=== PATIENT | female | born 1935 | race Caucasian/White ===

== ENCOUNTER 2018-12-02 05:46 | Inpatient (IN) ==
[2018-12-02] MEDS ORDERED: IPRATROPIUM/ALBUTEROL 3 ML AMPUL.NEB NEB ONE (05:57)
--- NOTE | 2018-12-02 06:07 | Emergency Department Note ---
SOB HPI - General Chief Complaint: Shortness of Breath/Dyspnea Stated Complaint: cough Time Seen by Provider: 12/02/18 06:01 Source: family Mode of arrival: wheelchair Limitations: no limitations - History of Present Illness This pleasant 83-year-old female comes the emergency room brought by her daughter and son, Ivonne with a couple day history of cough and worsening shortness of breath and a temperature. She has a history of asthma. She has been coughing and short of breath and wheezing with some phlegm production and some holding her chest with chest discomfort with her coughing. No specific chills or sweats have been noted. REVIEW OF SYSTEMS: Has had some weight loss. No nausea or vomiting or diarrhea or constipation Has some edema intermittently or chronically for which she takes furosemide Has had weakness. No dizziness No anxiety or depression. Has a history of some mild dementia. She had several falls for which she has been moved to the area from [place] where she used to live. - Related Data Home Medications Medication Instructions Recorded Confirmed Diltiazem HCl [Diltiazem ER] 360 mg PO DAILY 08/05/18 08/05/18 Donepezil HCl [Donepezil HCl Odt] 5 mg PO HS 08/05/18 08/05/18 Fluticasone Propionate [Flonase] 1 spray NS DAILY 08/05/18 08/05/18 Ipratropium [place] 0.2 mg IH DAILY 08/05/18 08/05/18 Levothyroxine Sodium [Synthroid] 100 mcg PO DAILY 08/05/18 08/05/18 Montelukast [Singular] 10 mg PO HS 08/05/18 08/05/18 Sertraline HCl [Zoloft] 50 mg PO DAILY 08/05/18 08/05/18 Warfarin [Coumadin] 3 mg PO DAILY 08/05/18 08/05/18 cloNIDine HCL [Catapres] 0.1 mg PO DAILY 08/05/18 08/05/18 Previous Rx's Medication Instructions Recorded Furosemide [Lasix] 20 mg PO DAILY #30 tab 08/05/18 Allergies Allergy/AdvReac Type Severity Reaction Status Date / Time bee venom protein (honey bee) Allergy Verified 08/05/18 20:43 sulfamethoxazole Allergy Verified 08/05/18 20:43 [From Bactrim] trimethoprim [From Bactrim] Allergy Verified 08/05/18 20:43 NEGRO Inhibitors AdvReac Verified 08/05/18 20:43 ARB-Angiotensin Receptor AdvReac Verified 08/05/18 20:43 Antagonist morphine AdvReac Verified 08/05/18 20:43 pain meds AdvReac Uncoded 08/05/18 20:43 Past Medical History - Past Medical History [facility] Narrative: Medical History (Last Updated 12/02/18 @ 06:28 by Von Laws DO) Chronic anticoagulation (Chronic) Congestive heart failure (Chronic) Cardiomegaly (Chronic) Atrial fibrillation/flutter (Chronic) History of CVA (cerebrovascular accident) (Chronic) Asthma with exacerbation (Resolved) Hypertension, essential (Chronic) Dementia (Chronic) Hypothyroidism, acquired (Chronic) History of obstructive sleep apnea (Chronic) Past Surgical History (Last Updated 12/02/18 @ 06:51 by Von Laws DO) History of neck disorder (Acute) Family History (Last Updated 12/02/18 @ 06:52 by Von Laws DO) Mother Father Medical history: Reports: asthma, atrial fibrillation, dementia, thyroid disease Psychiatric history: Denies: anxiety, depression - Social History smoking status: Never smoker Alcohol use: Reports: None Drug use: Reports: none. Denies: marijuana Physical Exam Limitations: no limitations General appearance: alert, anxious, in distress (Difficulty breathing and moving air.) Head: atraumatic, normocephalic Eye: Present: EOMI Respiratory: Present: respiratory distress, wheezes, accessory muscle use, prolonged expiratory phase, other (Initially had quite poor air exchange. After DuoNeb was moving her quite a bit better with occasional inspiratory coarseness and/or crackles and/or occasional wheezing.). Absent: stridor Cardiovascular: Present: regular rate, normal rhythm. Absent: systolic murmur, diastolic murmur Abdominal: Present: soft, hernia (Small anterior midline that is moderately firm.). Absent: distention, tenderness, guarding, rebound, rigidity, organo megaly, mass Neurological: Present: alert Psychiatric: Present: serious. Absent: depressed, agitated, anxious Skin: Present: warm, dry Course Vital Signs Temperature 101.8 F H 12/02/18 05:50 Pulse Rate 92 H 12/02/18 05:50 Respiratory Rate 30 H 12/02/18 05:50 Blood Pressure 150/100 12/02/18 05:50 Pulse Oximetry (%) 85 L 12/02/18 05:50 Temperature 101.7 F H 12/02/18 07:35 Pulse Rate 92 H 12/02/18 09:31 Respiratory Rate 24 H 12/02/18 06:39 Blood Pressure 143/67 12/02/18 09:31 Pulse Oximetry (%) 94 12/02/18 09:31 Shortness of Breath/Dyspnea - [facility] Narrative Medical decision making narrative: 5:54 AM - patient comes in with significant probable asthma exacerbation and fever. Will do septic work-up including chest x-ray, blood cultures, lactic acid, procalcitonin and basic labs. Chart review includes a history of mild anemia and mild creatinine elevation at 1.2+ a proBNP at 3300; all of these were about 3 months ago or 4 months ago. 6:53 AM - chest x-ray read as follows: 1. Cardiomegaly and pulmonary congestion 2. Probable mild interstitial pulmonary edema Because of this we will give a dose of IV furosemide. INR on the POC was 1.5. Patient was given a second dose of albuterol. She was tried to wean down on room air but again went down to 84% oximetry. This is after also furosemide IV. Because of this she is hypoxic and not responding to initial treatment such that she needs to be hospitalized and I will discuss with hospitalist. 9:48 AM - I spoke with Dr. Pimentel, hospitalist who agrees to take this patient. Earlier she had blood cultures obtained and was given 1 dose of IV Rocephin 1 g. - Lab Data Lab results reviewed: Yes I reviewed the patient's lab results. Result diagrams: 12/02/18 06:08 12/02/18 06:08 Lab Results 12/02/18 12/02/18 12/02/18 Range/Units 06:08 06:08 06:08 WBC 13.5 H (4.5-11.0) K/mcL RBC 4.27 (4.00-5.20) M/mcL Hgb 12.3 (12.0-15.0) g/dL Hct 38.0 (36.0-48.0) % MCV 89.1 (80.0-100.0) fL MCH 28.9 (26.0-34.0) pg MCHC 32.4 (31.0-36.0) g/dL RDW 16.5 H (11.5-14.5) % Plt Count 214 (140-440) K/mcL MPV 8.4 (7.4-10.4) fL Total Counted 100 Seg Neutrophils % 79 H (38-78) % Band Neutrophils % 1 (0-10) % Lymphocytes % 9 L (15-49) % Monocytes % (Manual) 11 (1-12) % Platelet Estimate Normal (NORMAL) RBC Morphology Abnorm A (NORMAL) Anisocytosis 1+ A (NONE SEEN) POC PT (11.9-14.5) sec POC INR (0.9-1.2) VBG Lactic Acid (0.5-2.0) mmol/L Sodium 139 (133-145) mmol/L Potassium 4.5 (3.3-5.1) mmol/L Chloride 99 (96-108) mmol/L Carbon Dioxide 25 (22-30) mmol/L Anion Gap 15.0 (8-16) BUN 31 H (8-23) mg/dl Creatinine 1.5 H (0.6-1.1) mg/dl GFR Calculation 31 Glucose 126 H (70-105) mg/dL Calcium 9.5 (8.6-10.4) mg/dl Total Bilirubin 1.1 H (0.0-1.0) mg/dL AST 11 (0-37) U/l ALT 8 (0-40) U/l Alkaline Phosphatase 113 (39-117) U/L Troponin T (0-0.03) ng/ml NT-Pro-B Natriuret Pep 3517.0 H (0-450) pg/ml Total Protein 7.6 (5.9-8.4) gm/dL Albumin 3.6 (3.2-5.2) gm/dL Globulin 4.0 H (2.2-3.7) gm/dL Albumin/Globulin Ratio 0.9 L (1.0-2.3) Procalcitonin 0.44 (<0.10) ng/mL 12/02/18 12/02/18 12/02/18 Range/Units 06:08 06:08 06:30 WBC (4.5-11.0) K/mcL RBC (4.00-5.20) M/mcL Hgb (12.0-15.0) g/dL Hct (36.0-48.0) % MCV (80.0-100.0) fL MCH (26.0-34.0) pg MCHC (31.0-36.0) g/dL RDW (11.5-14.5) % Plt Count (140-440) K/mcL MPV (7.4-10.4) fL Total Counted Seg Neutrophils % (38-78) % Band Neutrophils % (0-10) % Lymphocytes % (15-49) % Monocytes % (Manual) (1-12) % Platelet Estimate (NORMAL) RBC Morphology (NORMAL) Anisocytosis (NONE SEEN) POC PT 17.2 H (11.9-14.5) sec POC INR 1.5 H (0.9-1.2) VBG Lactic Acid 1.0 (0.5-2.0) mmol/L Sodium (133-145) mmol/L Potassium (3.3-5.1) mmol/L Chloride (96-108) mmol/L Carbon Dioxide (22-30) mmol/L Anion Gap (8-16) BUN (8-23) mg/dl Creatinine (0.6-1.1) mg/dl GFR Calculation Glucose (70-105) mg/dL Calcium (8.6-10.4) mg/dl Total Bilirubin (0.0-1.0) mg/dL AST (0-37) U/l ALT (0-40) U/l Alkaline Phosphatase (39-117) U/L Troponin T < 0.01 (0-0.03) ng/ml NT-Pro-B Natriuret Pep (0-450) pg/ml Total Protein (5.9-8.4) gm/dL Albumin (3.2-5.2) gm/dL Globulin (2.2-3.7) gm/dL Albumin/Globulin Ratio (1.0-2.3) Procalcitonin (<0.10) ng/mL - Radiology Data Radiology results reviewed: Yes I reviewed the patient's radiology results. Disposition Pt seen by BOND MANAGER/PA only: No Clinical Impression: Asthma exacerbation Qualifiers: Asthma severity: severe Asthma persistence: unspecified Qualified Code(s): J45.901 - Unspecified asthma with (acute) exacerbation Fever Qualifiers: Fever type: unspecified Qualified Code(s): R50.9 - Fever, unspecified CHF, acute on chronic Qualifiers: Heart failure type: unspecified Qualified Code(s): I50.9 - Heart failure, unspecified Summary: See MEDICAL DECISION MAKING above. With white count of 13.5 and fever, could have an underlying pneumonia but was notNoted on chest x-ray today. Disposition: Xfer As Inpt ([facility]) Condition: Fair Referrals: Ame Mendoza ARNP [Primary Care Provider] -
[2018-12-02] MEDS ORDERED: cefTRIAXone 1 GM VIAL IV ONE (06:16)
--- NOTE | 2018-12-02 06:20 | XRay Report ---
INDICATION: Cough. Fever. Dyspnea. TECHNIQUE: AP chest x-ray,portable semiupright COMPARISON: Previous chest x-ray dated 08/22/2018 FINDINGS:There is cardiomegaly. Pulmonary vascularity is prominent consistent with pulmonary congestion. Maybe mild interstitial edema, right worse than left. No focal pulmonary parenchymal infiltrate or mass. No evidence for pleural fluid. IMPRESSION: 1. Cardiomegaly and pulmonary congestion 2. Probable mild interstitial pulmonary edema Interpreted and Authenticated by: Kel Harmon 12/02/18
[2018-12-02] MEDS ORDERED: LACTATED RINGERS 1,000 ML IV SCH (06:30)
[2018-12-02 06:35] LABS: POC INR 1.5 (0.9-1.2); POC Pro Time 17.2 sec (11.9-14.5)
[2018-12-02] MEDS ORDERED: FUROSEMIDE 20 MG/2 ML VIAL IV ONE (06:53)
[2018-12-02 07:22] LABS: Hemoglobin 12.3 g/dL (12.0-15.0); Mean Cell Volume 89.1 fL (80.0-100.0); Mean Corpuscular HGB Conc 32.4 g/dL (31.0-36.0); Mean Platelet Volume 8.4 fL (7.4-10.4); Platelet Count 214 K/mcL (140-440); RBC 4.27 M/mcL (4.00-5.20); Red Cell Distribution Width 16.5 % (11.5-14.5); WBC 13.5 K/mcL (4.5-11.0)
[2018-12-02 07:45] LABS: Anisocytosis 1+ (NONE SEEN); Band Neutrophils % 1 % (0-10); Lymphocytes % 9 % (15-49); Monocytes % (Manual) 11 % (1-12); Platelet Estimate NORMAL (NORMAL); RBC Morphology ABNORM (NORMAL); Segmented Neutrophils % 79 % (38-78)
[2018-12-02 07:46] LABS: ALT/SGPT 8 U/l (0-40); AST/SGOT 11 U/l (0-37); Albumin 3.6 gm/dL (3.2-5.2); Albumin/Globulin Ratio 0.9 (1.0-2.3); Alkaline Phosphatase 113 U/L (39-117); Bilirubin,Total 1.1 mg/dL (0.0-1.0); Blood Urea Nitrogen 31 mg/dl (8-23); Calcium 9.5 mg/dl (8.6-10.4); Carbon Dioxide 25 mmol/L (22-30); Chloride 99 mmol/L (96-108); Glomerular Filtration Rate 31; Glucose 126 mg/dL (70-105); Potassium 4.5 mmol/L (3.3-5.1); Sodium 139 mmol/L (133-145)
[2018-12-02 10:45] LABS: Appearance,Urine CLEAR; Bacteria,Urine FEW /hpf (0); Bilirubin,Urine NEG (NEG); Color,Urine STRAW; Culture Indicated,Urine YES; Glucose,Urine (UA) NEGATIVE (NEG); Ketones,Urine NEG (NEG); Leukocyte Esterase,Urine 25 /uL (NEG); Mucus,Urine FEW /hpf (0); Nitrate,Urine NEG (NEG); Protein,Urine NEG (NEG); Specific Gravity,Urine 1.009 (1.000-1.035); Urine Blood 0.03 mg/dL (<0.03); Urine Hyaline Cast 1 /lpf (0-2); Urine RBC 1 /hpf (0-1); Urine Squamous Epithelial Cell < 1 /hpf (0-4); Urine Transitional Epi Cells < 1 /hpf (0-2); Urine WBC 5 /hpf (0-4); Urobilinogen,Urine NEG (NEG)
--- NOTE | 2018-12-02 10:49 | Cat Scan Report ---
CLINICAL INFORMATION: Fever TECHNIQUE: Axial images through the chest, abdomen, pelvis. Sagittal and coronal reformatted images. Intravenous contrast material was not administered. COMPARISON: Chest x-rays dated 12/02/2018, 08/22/2018, 08/05/2018 FINDINGS: CHEST: Infiltrate in the superior segment of the right lower lobe consistent with pneumonia. Mild right upper lobe and left lower lobe infiltrates are nonspecific. There is a small right pleural effusion. No evidence for loculation. No evidence for empyema. There is cardiomegaly. Chest x-ray consistent with mild interstitial edema. There is no pericardial fluid. There is only mild coronary artery calcification. There is mild calcification within the thoracic aorta. No aneurysmal dilatation. There is a 2.2 cm pretracheal lymph node. No evidence for hilar adenopathy on this noncontrast enhanced examination. There is no pathologic axillary or supraclavicular adenopathy. There is mild retained material within the esophagus. There is no hiatal hernia. No detectable mass. No thoracic compression fractures. No lytic lesions. No rib lesions. ABDOMEN AND PELVIS: 10 mm low density abnormality in the right lobe of liver. This is nonspecific. Liver is otherwise negative. Liver contour is smooth. No evidence for cirrhosis. Gallbladder is present. No calcified gallstones. No dilated bile ducts. No evidence for hepatic abscess. Negative spleen. No splenomegaly Negative adrenal glands. Pancreas is negative. No pancreatic mass. No peripancreatic abnormality. Kidneys are negative to the limits of noncontrast enhanced examination. There is no cholelithiasis. No renal calculi or detectable mass Colon is negative. There is no diverticulitis. No detectable colonic mass. No evidence for appendicitis. Small bowel is negative. No mechanical small bowel obstruction There is no adnexal mass. No free pelvic fluid. No intra-abdominal fluid collection. No intra-abdominal abscess. There is no pneumoperitoneum. There is no biliary or portal venous gas. No pneumatosis. Trace calcification of the abdominal aorta. No abdominal aortic aneurysm Multilevel degenerative disc disease in the lumbar spine. No evidence for discitis. Sacrum and pelvis are negative. IMPRESSION: 1. Pulmonary parenchymal infiltrates consistent with pneumonia. Small right pleural effusion 2. Nonspecific 2 cm pretracheal lymph node 3. Material within the esophagus consistent with incomplete clearing 4. Nonspecific 10 mm lesion in the right lobe of the liver is probably benign Interpreted and Authenticated by: Kel Harmon 12/02/18
[2018-12-02] MEDS ORDERED: LACTATED RINGERS 1,000 ML IV ONE (10:57)
--- NOTE | 2018-12-02 11:08 | Internal Med History&Physical ---
Medical - H&P: HPI Patient information: Note initiated : 12/02/18 at 11:05 am Service Date, if different from initiated Date: [] Patient: Emely Chavez a 83 y/o F admitted on for cough. Chief Complaint: [] History of present illness: Ms. Chavez is a 83 year old F who lives at home I believe with her daughter in the son-in-law, comes to the emergency room brought in by the family for evaluation of weakness and fever. Patient is pleasantly demented and notes that there is nothing wrong with her she was doing fine but her family did some tests and then brought her to the hospital. According to the ER note the patient family reported that the patient has a history of cough and fever that has been bothering her for the last 2 days. She was getting progressively worse and therefore she was brought to the emergency room for evaluation The family was not present by the bedside at the time of my evaluation The patient denied any acute complaints during my review of systems declined cough even though she was coughing. On presentation patient was febrile temperature 101.8 T-max of 102.5, heart rate 91 blood pressure 150 x 100 hypoxic with the oxygen saturation of 85 needing 3 L of oxygen to saturate more than 90%. Labs showed WBC count of 13.5 hemoglobin 12.3 platelets 214 INR is 1.5 lactic acid 1.0 chemistry shows sodium 139 potassium 4.5 creatinine 1.5 bicarbonate 25 glucose 126 procalcitonin is 0.44 troponin is negative. Chest x-ray was reported as negative possible pulmonary congestion by the radiologist however I felt that there is an infiltrate on the right side and therefore ordered a chest CT, also covered abdomen and pelvis to look for any other source of fever. CT chest showed patient does have infiltrate on the right side The patient does have history of dysphagia based on her previous records, she had a swallow eval done in 2018 which showed delayed swallow and early spillage. Patient possibly could also hav aspiration pneumonia. She is being admitted to the hospital for further management All systems: reviewed and no additional remarkable complaints except as stated (as per HPI, not sure how reliable pt ROS Is given dementia,) Medical - H&P: H Medical history: Medical History (Last Updated 12/02/18 @ 06:28 by Von Laws DO) Chronic anticoagulation (Chronic) Congestive heart failure (Chronic) Cardiomegaly (Chronic) Atrial fibrillation/flutter (Chronic) History of CVA (cerebrovascular accident) (Chronic) Asthma with exacerbation (Resolved) Hypertension, essential (Chronic) Dementia (Chronic) Hypothyroidism, acquired (Chronic) History of obstructive sleep apnea (Chronic) Mitral regurgitation Depression Gout Surgical history: Past Surgical History (Last Updated 12/02/18 @ 06:51 by Von Laws DO) History of neck disorder (Acute) Pertinent family history: Family History (Last Updated 12/02/18 @ 06:52 by Von Laws DO) Mother Father Medical - H&P: Meds Home Medications Medication Instructions Recorded Confirmed Type Diltiazem HCl [Diltiazem ER] 360 mg PO DAILY 08/05/18 12/02/18 History Donepezil HCl [Donepezil HCl Odt] 5 mg PO HS 08/05/18 12/02/18 History Fluticasone Propionate [Flonase] 1 spray NS DAILY 08/05/18 12/02/18 History Ipratropium [place] 0.2 mg IH DAILY 08/05/18 12/02/18 History Levothyroxine Sodium [Synthroid] 100 mcg PO DAILY 08/05/18 12/02/18 History Montelukast [Singular] 10 mg PO HS 08/05/18 12/02/18 History Warfarin [Coumadin] 3 mg PO DAILY 08/05/18 12/02/18 History cloNIDine HCL [Catapres] 0.1 mg PO DAILY 08/05/18 12/02/18 History Diclofenac Sodium [Voltaren] 100 gm TP DAILY PRN 12/02/18 12/02/18 History Allergies Allergy/AdvReac Type Severity Reaction Status Date / Time bee venom protein (honey bee) Allergy Verified 08/05/18 20:43 sulfamethoxazole Allergy Verified 08/05/18 20:43 [From Bactrim] trimethoprim [From Bactrim] Allergy Verified 08/05/18 20:43 NEGRO Inhibitors AdvReac Verified 08/05/18 20:43 ARB-Angiotensin Receptor AdvReac Verified 08/05/18 20:43 Antagonist morphine AdvReac Verified 08/05/18 20:43 pain meds AdvReac Uncoded 08/05/18 20:43 Medical - H&P: Exam - Constitutional Vitals: Temp Pulse Resp BP Pulse Ox 101.7 F H 81 24 H 143/67 95 12/02/18 07:35 12/02/18 09:58 12/02/18 06:39 12/02/18 09:31 12/02/18 09:58 Exam: GENERAL: The patient is a well-developed, well-nourished in no apparent distress. Is alert and oriented x1. Pleaseantly demented VITAL SIGNS: Reviewed and as noted elsewhere. HEENT: Head is normocephalic and atraumatic. Extraocular muscles are intact. Pupils are equal, round, and reactive to light. Nares appeared normal. Mouth jesse ears any without lesions. Mucous membranes are moist. NECK: Normal to inspection, Supple, No lymphadenopathy or thyromegaly. LUNGS: Air entry equal on both sides, no wheezing, crackles or rhonchi noted. No accessory muscles of respiration HEART: Regular rate and rhythm normal, S1 and S2 heard, no Gallop, S3 or Rub Noted, No Gross murmur heard. ABDOMEN: Soft, nontender, and nondistended. Positive bowel sounds. No hepatosplenomegaly was noted. EXTREMITIES: No cyanosis, clubbing, rash, lesions, trace edema NEUROLOGIC: Cranial nerves II through XII are grossly intact. Motor and Sensory System Grossly Intact PSYCHIATRIC: confused SKIN: No ulceration or wounds noted, No jaundice, No rash noted. Medical - H&P: Reslt - Labs CBC & Chem 7: 12/02/18 06:08 12/02/18 06:08 Labs: Short CBC 12/02/18 Range/Units 06:08 WBC 13.5 H (4.5-11.0) K/mcL Hgb 12.3 (12.0-15.0) g/dL Hct 38.0 (36.0-48.0) % Plt Count 214 (140-440) K/mcL BMP 12/02/18 06:08 Sodium 139 Potassium 4.5 Chloride 99 Carbon Dioxide 25 BUN 31 H Creatinine 1.5 H Glucose 126 H Calcium 9.5 Cardiac Enzymes 12/02/18 Range/Units 06:08 Troponin T < 0.01 (0-0.03) ng/ml Liver Function 12/02/18 Range/Units 06:08 Total Bilirubin 1.1 H (0.0-1.0) mg/dL AST 11 (0-37) U/l ALT 8 (0-40) U/l Alkaline Phosphatase 113 (39-117) U/L Albumin 3.6 (3.2-5.2) gm/dL Urine 12/02/18 Range/Units 09:50 Urine Color Straw Urine Appearance Clear Urine pH 6.0 (5.0-9.0) Ur Specific [place] 1.009 (1.000-1.035) Urine Protein Neg (NEG) mg/dL Urine Glucose (UA) Negative (NEG) mg/dL Medical - H&P: A/P - Narrative A/P Narrative: A/P Sepsis Pneumonia, likely Aspirational -Treat with IVF, Broad spectrum coverage to cover aspiration, and community acquired pna -nasal mrsa screen, if neg will d/c vanco -Blood and sputum cx, descalate therapy per microbiology Acute hypoxic respiratory failure -Oxygen supplementation to keep osat > 90 Dementia -continue donezepil -high risk of delirum conservative management, Atrial Fibrillation -on coumadin and cardizem for rate control -INR is subtherapeutic, management of coumadin per pharmacy -Resume cardizem from AM, bp is stable. Rate is controlled HTN -resume cardizem from AM once bp stable x 24 hrs Mitral regurgitation -moderate to severe, monitor, Hypothyroidism -resume synthroid, Dysphagia -ST eval, DVT hep sq x 1, pt already on coumadin Full code for now Regular diet given age, Social History - Tobacco smoking status: Never smoker - Alcohol alcohol intake frequency: does not drink - Substance use substance use type: does not use
[2018-12-02] MEDS ORDERED: ONDANSETRON 4 MG/2 ML VIAL IV PRN (11:41)
[2018-12-02] MEDS ORDERED: NALOXONE HCL 0.4 MG/ML VIAL IV PRN (11:41)
[2018-12-02] MEDS ORDERED: DICLOFENAC SODIUM TOPICAL PRN (11:41)
[2018-12-02] MEDS ORDERED: MAGNESIUM HYDROXIDE 30 ML ORAL.SUSP PO PRN (11:41)
[2018-12-02] MEDS ORDERED: VANCOMYCIN PER PHARMACY IV SCH (11:41)
[2018-12-02] MEDS ORDERED: VANCOMYCIN 1,000 MG in 0.9 % SODIUM CHLORIDE 250 ML IV ONE (12:00)
[2018-12-02] MEDS: AZITHROMYCIN 500 MG in DEXTROSE 5% IN WATER 250 ML IV SCH (12:31)
[2018-12-02] MEDS: IPRATROPIUM/ALBUTEROL 3 ML AMPUL.NEB NEB SCH ×3 (13:22→20:51)
[2018-12-02] MEDS ORDERED: WARFARIN 3 MG TABLET PO ONE (14:00)
--- NOTE | 2018-12-02 14:43 | Internal Med Progress Note ---
Medical - PN: Subj Patient information: Note initiated : 12/02/18 at 2:35 pm Service Date, if different from initiated Date: [] Patient: Emeyl Chavez 83 y/o F admitted on 12/02/18 for cough. Chief Complaint: [] Interval history: Ms. Chavez is a 83 year old F who lives at home I believe with her daughter in the son-in-law, comes to the emergency room brought in by the family for evaluation of weakness and fever. Patient is pleasantly demented and notes that there is nothing wrong with her she was doing fine but her family did some tests and then brought her to the hospital. According to the ER note the patient family reported that the patient has a history of cough and fever that has been bothering her for the last 2 days. She was getting progressively worse and therefore she was brought to the emergency room for evaluation The family was not present by the bedside at the time of my evaluation The patient denied any acute complaints during my review of systems declined cough even though she was coughing. On presentation patient was febrile temperature 101.8 T-max of 102.5, heart rate 91 blood pressure 150 x 100 hypoxic with the oxygen saturation of 85 needing 3 L of oxygen to saturate more than 90%. Labs showed WBC count of 13.5 hemoglobin 12.3 platelets 214 INR is 1.5 lactic acid 1.0 chemistry shows sodium 139 potassium 4.5 creatinine 1.5 bicarbonate 25 glucose 126 procalcitonin is 0.44 troponin is negative. Chest x-ray was reported as negative possible pulmonary congestion by the radiologist however I felt that there is an infiltrate on the right side and therefore ordered a chest CT, also covered abdomen and pelvis to look for any other source of fever. CT chest showed patient does have infiltrate on the right side The patient does have history of dysphagia based on her previous records, she had a swallow eval done in 2018 which showed delayed swallow and early spillage. Patient possibly could also hav aspiration pneumonia. She is being admitted to the hospital for further management 12/03 - Constitutional Vitals: Vital Signs Temp Pulse Resp BP Pulse Ox 101.7 F H 113 H 20 128/69 96 12/02/18 11:39 12/02/18 13:28 12/02/18 13:28 12/02/18 11:39 12/02/18 13:25 Period Temp Pulse Resp BP Sys/Treviño Pulse Ox Last 24 Hr 98.5 F-102.5 F 46-113 20-30 117-162/59-135 85-96 Intake and Output 12/02/18 12/02/18 12/02/18 05:59 13:59 21:59 Intake Total 640 Output Total 400 Balance 640 -400 Weight 68.039 kg 65.091 kg Patient Weight 12/03/18 05:59 Weight 65.091 kg Intake & Output: Intake & Output 12/02/18 12/02/18 12/02/18 05:59 13:59 21:59 Intake Total 640 Output Total 400 Balance 640 -400 Weight 68.039 kg 65.091 kg Intake: IV 400 Lactated Ringers 1,000 ml @ 400 Wide Open IV BOLUS ONE Rx#: [id number] Oral 240 Output: Urine Catheter Amount 400 Other: Meal Lunch Percent of Meal Consumed 50% Feeding Ability Assist with Tray Set Up Urine Appearance Clear Temp Probe Gleason Clear Urine Color Bright Yellow Temp Probe Gleason Bright Yellow Urine Odor Normal Exam: General: Alert, Awake, No acute Distress Eyes/N/T: EOMI, Head/Neck: neck supple, CV: RRR, No murmurs, Pulm: Abd: soft, nontender, +BS x4 Ext: no clubbing/cyanosis/edema Neuro: Alert, no focal deficits, moves all extremities, Skin: warm/dry Medical - PN: Obj Da - Labs CBC & Chem 7: 12/02/18 06:08 12/02/18 06:08 Labs: Abnormal Lab Results 12/02/18 12/02/18 12/02/18 09:50 06:30 06:08 WBC RDW Seg Neutrophils % Lymphocytes % RBC Morphology Anisocytosis POC PT 17.2 H POC INR 1.5 H BUN 31 H Creatinine 1.5 H Glucose 126 H Total Bilirubin 1.1 H NT-Pro-B Natriuret Pep 3517.0 H Globulin 4.0 H Albumin/Globulin Ratio 0.9 L Urine Occult Blood 0.03 A Ur Leukocyte Esterase 25 A Urine WBC 5 H Urine Bacteria Few A 12/02/18 06:08 WBC 13.5 H RDW 16.5 H Seg Neutrophils % 79 H Lymphocytes % 9 L RBC Morphology Abnorm A Anisocytosis 1+ A POC PT POC INR BUN Creatinine Glucose Total Bilirubin NT-Pro-B Natriuret Pep Globulin Albumin/Globulin Ratio Urine Occult Blood Ur Leukocyte Esterase Urine WBC Urine Bacteria Meds: Medications Acetaminophen (Tylenol) 650 mg PO Q6HP PRN PRN Reason: PAIN/FEVER > 101 Albuterol/Ipratropium (Duoneb) 3 ml NEB QID [facility] Last Admin: 12/02/18 13:22 Dose: 3 ml Documented by: Diltiazem HCl (Cardizem Cd) 360 mg PO DAILY [facility] Donepezil HCl (Aricept) 5 mg PO HS [facility] Fluticasone Propionate (Flonase) 1 spray NS DAILY [facility] Heparin Sodium (Porcine) (Heparin) 5,000 unit SQ Q12 [facility] Stop: 12/02/18 21:01 Azithromycin 500 mg/ Dextrose 250 mls @ 250 mls/hr IV DAILY [facility]; Protocol Stop: 12/04/18 09:59 Last Admin: 12/02/18 12:31 Dose: 250 mls/hr Documented by: Piperacillin Sod/Tazobactam (Sod 2.25 gm/ Dextrose) 50 mls @ 100 mls/hr IV Q6H [facility]; Protocol Levothyroxine Sodium (Synthroid) 100 mcg PO ACB [facility] Magnesium Hydroxide (Milk Of Magnesia) 30 ml PO DAILYP PRN PRN Reason: Constipation Montelukast Sodium (Singular) 10 mg PO HS [facility] Naloxone HCl (Narcan) 0.1 mg IV Q2MIN PRN PRN Reason: Opiate Reversal Ondansetron HCl (Zofran) 4 mg IV Q6HP PRN PRN Reason: Nausea And Vomiting Diclofenac Sodium [ Voltaren] 100 Gm Topical Gel 1 dose TOPICAL DAILYP PRN PRN Reason: Pain Senna (Senokot) 2 tab PO HS [facility] Sodium Chloride (Saline Flush) 10 ml IV Q8 [facility] Trazodone HCl (Desyrel) 25 mg PO HSP PRN PRN Reason: Insomnia Vancomycin HCl (Vancomycin Per Pharmacy) 1 order IV UD [facility]; Protocol Warfarin Sodium (Coumadin Per Pharmacy) 1 order PO UD [facility] Medical - PN: A/P - Time Spent With Patient Total time spent is greater than 50% in coordination of care (as documented) at patient's floor/unit and/or counseling patient: - Narrative A/P Narrative: A: *PNA, likely aspiration: *Acute hypoxic respiratory failure: *Sepsis: *Dementia: *Atrial fibrillation: *MR, moderate to severe: *Hypothyroidism: on levothyroxine *Dysphagia:: *BARTOLO on CKD III (base Cr~) * P: -Zosyn, pending MRSA screen -IVF's -BC/SC pending -trend PCT -Wean O2 as able -IS/Acapella -dysphagia diet -ST eval -cont home cardizem -pt/ot -ppx: Warfarin per pharmacy Medical - PN: Qual - Stroke Symptom Onset Unknown: No - VTE Deep Vein Thrombosis/Pulmonary Embolism Present on Admission: No
[2018-12-02] MEDS: 0.9 % SODIUM CHLORIDE 10 ML SYRINGE IV SCH ×3 (14:50→23:12)
[2018-12-02] MEDS: PIPERACILLIN SODIUM/TAZOBACTAM 2.25 GM in DEXTROSE 5% IN WATER 50 ML IV SCH ×3 (14:50→23:10)
[2018-12-02] MEDS ORDERED: traZODone HCL 50 MG TABLET PO PRN (21:00)
[2018-12-02] MEDS ORDERED: HEPARIN 5,000 UNIT/ML VIAL SQ SCH (21:00)
[2018-12-02] MEDS ORDERED: OLANZapine 10 MG VIAL IM ONE (21:18)
[2018-12-02] MEDS ORDERED: OLANZapine 10 MG VIAL IM SCH (21:30)
[2018-12-02] MEDS: DONEPEZIL 10 MG TABLET PO SCH (22:11)
[2018-12-02] MEDS: SENNOSIDES 1 TABLET PO SCH (22:11)
[2018-12-02] MEDS: MONTELUKAST 10 MG TABLET PO SCH (22:11)
[2018-12-03] MEDS: PIPERACILLIN SODIUM/TAZOBACTAM 2.25 GM in DEXTROSE 5% IN WATER 50 ML IV SCH ×3 (04:51→18:16)
[2018-12-03] MEDS: 0.9 % SODIUM CHLORIDE 10 ML SYRINGE IV SCH ×3 (04:58→19:03)
[2018-12-03 05:34] LABS: Basophils # (Auto) 0 K/mcL (0.0-0.3); Basophils % (Auto) 0.3 % (0.0-2.0); Eosinophils # (Auto) 0 K/mcL (0.0-0.7); Eosinophils % (Auto) 0.3 % (0.0-7.0); Granulocytes % (Auto) 75.8 % (38.0-78.0); Hematocrit 33.8 % (36.0-48.0); Lymphocytes # (Auto) 1.6 K/mcL (1.5-4.8); Lymphocytes % (Auto) 12.7 % (15.5-49.0); Mean Cell Volume 89.6 fL (80.0-100.0); Mean Corpuscular HGB Conc 32.5 g/dL (31.0-36.0); Mean Platelet Volume 8.3 fL (7.4-10.4); Monocytes # (Auto) 1.4 K/mcL (0.1-0.9); Monocytes % (Auto) 10.9 % (1.0-12.0); Platelet Count 207 K/mcL (140-440); RBC 3.77 M/mcL (4.00-5.20); Red Cell Distribution Width 16.2 % (11.5-14.5); WBC 12.7 K/mcL (4.5-11.0)
[2018-12-03 05:42] LABS: INR 1.4 (0.9-1.1); Prothrombin Time 16.9 sec (11.9-14.5)
[2018-12-03 06:07] LABS: ALT/SGPT 7 U/l (0-40); AST/SGOT 10 U/l (0-37); Albumin/Globulin Ratio 0.8 (1.0-2.3); Alkaline Phosphatase 100 U/L (39-117); Bilirubin,Direct 0.2 mg/dL (0.0-0.3); Bilirubin,Total 0.8 mg/dL (0.0-1.0); Blood Urea Nitrogen 33 mg/dl (8-23); Calcium 8.9 mg/dl (8.6-10.4); Carbon Dioxide 27 mmol/L (22-30); Chloride 100 mmol/L (96-108); Globulin 3.8 gm/dL (2.2-3.7); Glomerular Filtration Rate 34; Glucose 109 mg/dL (70-105); Lactate Dehydrogenase 172 U/L (94-250); Magnesium 1.8 mg/dL (1.6-2.5); Phosphorous 3.3 mg/dL (2.7-4.5); Potassium 4.1 mmol/L (3.3-5.1); Sodium 141 mmol/L (133-145); Triglycerides 97 mg/dl (<150); Uric Acid 5.3 mg/dL (2.5-8.0)
[2018-12-03 06:22] LABS: Vancomycin,Random 11.5 ug/mL
[2018-12-03] MEDS: LEVOTHYROXINE 100 MCG TABLET PO SCH (07:09)
[2018-12-03] MEDS: ACETAMINOPHEN 325 MG TABLET PO PRN ×2 (07:09→18:58)
[2018-12-03] MEDS: DILTIAZEM 120 MG CAP.XL.24H PO SCH (07:09)
--- NOTE | 2018-12-03 07:17 | Internal Med Progress Note ---
Medical - PN: Subj Patient information: Note initiated : 12/03/18 at 7:12 am Service Date, if different from initiated Date: [] Patient: Emely Chavez 83 y/o F admitted on 12/02/18 for cough. Chief Complaint: [] Interval history: Ms. Chavez is a 83 year old F who lives at home I believe with her daughter in the son-in-law, comes to the emergency room brought in by the family for evaluation of weakness and fever. Patient is pleasantly demented and notes that there is nothing wrong with her she was doing fine but her family did some tests and then brought her to the hospital. According to the ER note the patient family reported that the patient has a history of cough and fever that has been bothering her for the last 2 days. She was getting progressively worse and therefore she was brought to the emergency room for evaluation The family was not present by the bedside at the time of my evaluation The patient denied any acute complaints during my review of systems declined cough even though she was coughing. On presentation patient was febrile temperature 101.8 T-max of 102.5, heart rate 91 blood pressure 150 x 100 hypoxic with the oxygen saturation of 85 needing 3 L of oxygen to saturate more than 90%. Labs showed WBC count of 13.5 hemoglobin 12.3 platelets 214 INR is 1.5 lactic acid 1.0 chemistry shows sodium 139 potassium 4.5 creatinine 1.5 bicarbonate 25 glucose 126 procalcitonin is 0.44 troponin is negative. Chest x-ray was reported as negative possible pulmonary congestion by the radiologist however I felt that there is an infiltrate on the right side and therefore ordered a chest CT, also covered abdomen and pelvis to look for any other source of fever. CT chest showed patient does have infiltrate on the right side The patient does have history of dysphagia based on her previous records, she had a swallow eval done in 2018 which showed delayed swallow and early spillage. Patient possibly could also hav aspiration pneumonia. She is being admitted to the hospital for further management 12/03 Became agitated last night wandering home. On 2 L nasal cannula this morning. Awaiting speech therapy evaluation. N.p.o. until seen by speech. Has cough but denies shortness of breath Review of Systems: denies headache/fever/chills/nausea/vomiting/chest or abdominal pain /dyspnea/diarrhea. Otherwise see above. - Constitutional Vitals: Vital Signs Temp Pulse Resp BP Pulse Ox 100.0 F H 84 18 133/86 96 12/03/18 07:09 12/03/18 06:47 12/03/18 06:47 12/03/18 06:47 12/03/18 07:01 Period Temp Pulse Resp BP Sys/Treviño Pulse Ox Last 24 Hr 98.5 F-101.7 F 46-113 18-28 117-157/59-127 86-98 Intake and Output 12/02/18 12/03/18 12/03/18 21:59 05:59 13:59 Intake Total 420 150 Output Total 400 375 Balance 20 -225 Weight 67.812 kg Intake & Output: Intake & Output 12/02/18 12/03/18 12/03/18 21:59 05:59 13:59 Intake Total 420 150 Output Total 400 375 Balance 20 -225 Weight 67.812 kg Intake: IV 300 50 Zithromax 500 mg In Dextrose 5% 250 in Water 250 ml @ 250 mls/hr IV DAILY [facility] Rx#:[id number] Zosyn 2.25 gm In Dextrose 5% in 50 50 Water 50 ml @ 100 mls/hr IV Q6H [facility] Rx#:[id number] Oral 120 100 Output: Urine Catheter Amount 400 375 Other: Meal Dinner Percent of Meal Consumed 10% Urine Appearance Clear Urine Color Dark Yellow Exam: General: Alert, Awake, No acute Distress Eyes/N/T: EOMI, Head/Neck: neck supple, CV: RRR, No murmurs, Pulm: Occasional mild rhonchi bilaterally otherwise clear and no wheezing Abd: soft, nontender, +BS x4 Ext: no clubbing/cyanosis/edema Neuro: Alert, no focal deficits, moves all extremities, Skin: warm/dry Medical - PN: Obj Da - Labs CBC & Chem 7: 12/03/18 04:46 12/03/18 04:46 Labs: Abnormal Lab Results 12/03/18 12/03/18 12/03/18 04:46 04:46 04:46 WBC 12.7 H RBC 3.77 L Hgb 11.0 L Hct 33.8 L RDW 16.2 H Lymph % (Auto) 12.7 L Gran # 9.6 H [place] # (Auto) 1.4 H Seg Neutrophils % Lymphocytes % RBC Morphology Anisocytosis POC PT PT 16.9 H POC INR INR 1.4 H BUN 33 H Creatinine 1.4 H Glucose 109 H Total Bilirubin NT-Pro-B Natriuret Pep Albumin 3.0 L Globulin 3.8 H Albumin/Globulin Ratio 0.8 L Urine Occult Blood Ur Leukocyte Esterase Urine WBC Urine Bacteria 12/02/18 12/02/18 12/02/18 09:50 06:30 06:08 WBC RBC Hgb Hct RDW Lymph % (Auto) Gran # [place] # (Auto) Seg Neutrophils % Lymphocytes % RBC Morphology Anisocytosis POC PT 17.2 H PT POC INR 1.5 H INR BUN 31 H Creatinine 1.5 H Glucose 126 H Total Bilirubin 1.1 H NT-Pro-B Natriuret Pep 3517.0 H Albumin Globulin 4.0 H Albumin/Globulin Ratio 0.9 L Urine Occult Blood 0.03 A Ur Leukocyte Esterase 25 A Urine WBC 5 H Urine Bacteria Few A 12/02/18 06:08 WBC 13.5 H RBC Hgb Hct RDW 16.5 H Lymph % (Auto) Gran # [place] # (Auto) Seg Neutrophils % 79 H Lymphocytes % 9 L RBC Morphology Abnorm A Anisocytosis 1+ A POC PT PT POC INR INR BUN Creatinine Glucose Total Bilirubin NT-Pro-B Natriuret Pep Albumin Globulin Albumin/Globulin Ratio Urine Occult Blood Ur Leukocyte Esterase Urine WBC Urine Bacteria Meds: Medications Acetaminophen (Tylenol) 650 mg PO Q6HP PRN PRN Reason: PAIN/FEVER > 101 Last Admin: 12/03/18 07:09 Dose: 650 mg Documented by: Albuterol/Ipratropium (Duoneb) 3 ml NEB QID [facility] Last Admin: 12/02/18 20:51 Dose: 3 ml Documented by: Diltiazem HCl (Cardizem Cd) 360 mg PO DAILY [facility] Last Admin: 12/03/18 07:09 Dose: 360 mg Documented by: Donepezil HCl (Aricept) 5 mg PO HS [facility] Last Admin: 12/02/18 22:11 Dose: Not Given Documented by: Fluticasone Propionate (Flonase) 1 spray NS DAILY [facility] Azithromycin 500 mg/ Dextrose 250 mls @ 250 mls/hr IV DAILY [facility]; Protocol Stop: 12/04/18 09:59 Last Infusion: 12/02/18 15:31 Dose: Infused Documented by: Piperacillin Sod/Tazobactam (Sod 2.25 gm/ Dextrose) 50 mls @ 100 mls/hr IV Q6H [facility]; Protocol Last Admin: 12/03/18 04:51 Dose: 100 mls/hr Documented by: Levothyroxine Sodium (Synthroid) 100 mcg PO ACB [facility] Last Admin: 12/03/18 07:09 Dose: 100 mcg Documented by: Magnesium Hydroxide (Milk Of Magnesia) 30 ml PO DAILYP PRN PRN Reason: Constipation Montelukast Sodium (Singular) 10 mg PO [facility] Last Admin: 12/02/18 22:11 Dose: Not Given Documented by: Naloxone HCl (Narcan) 0.1 mg IV Q2MIN PRN PRN Reason: Opiate Reversal Ondansetron HCl (Zofran) 4 mg IV Q6HP PRN PRN Reason: Nausea And Vomiting Diclofenac Sodium [ Voltaren] 100 Gm Topical Gel 1 dose TOPICAL DAILYP PRN PRN Reason: Pain Senna (Senokot) 2 tab PO [facility] Last Admin: 12/02/18 22:11 Dose: Not Given Documented by: Sodium Chloride (Saline Flush) 10 ml IV Q8 [facility] Last Admin: 12/03/18 04:58 Dose: 10 ml Documented by: Trazodone HCl (Desyrel) 25 mg PO HSP PRN PRN Reason: Insomnia Warfarin Sodium (Coumadin Per Pharmacy) 1 order PO UD [facility] Medical - PN: A/P - Time Spent With Patient Total time spent is greater than 50% in coordination of care (as documented) at patient's floor/unit and/or counseling patient: - Narrative A/P Narrative: A: *PNA, likely aspiration: *Acute hypoxic respiratory failure: -on 2L NC *Sepsis: -leukocytosis mildly improved *Dementia: *Atrial fibrillation: *MR, moderate to severe: *Hypothyroidism: on levothyroxine *Dysphagia:: *?BARTOLO on CKD III (base Cr~) * P: -Zosyn (MRSA screen neg) -BC/SC pending -trend PCT -Wean O2 as able -IS/Acapella -NPO until seen by ST -ST eval -cont home cardizem and clonidine -pt/ot -ppx: Warfarin per pharmacy Medical - PN: Qual - Stroke Symptom Onset Unknown: No - VTE Deep Vein Thrombosis/Pulmonary Embolism Present on Admission: No
[2018-12-03] MEDS: cloNIDine HCL 0.1 MG TABLET PO SCH (07:25)
[2018-12-03] MEDS: IPRATROPIUM/ALBUTEROL 3 ML AMPUL.NEB NEB SCH ×4 (08:17→21:05)
[2018-12-03] MEDS: ENOXAPARIN 30 MG/0.3 ML SYRINGE SQ SCH (09:33)
[2018-12-03] MEDS: FLUTICASONE PROPIONATE SPRAY.NAS NS SCH (09:34)
[2018-12-03] MEDS: AZITHROMYCIN 500 MG in DEXTROSE 5% IN WATER 250 ML IV SCH (10:03)
[2018-12-03] MEDS ORDERED: WARFARIN 3 MG TABLET PO ONE (14:00)
[2018-12-03] MEDS: SENNOSIDES 1 TABLET PO SCH ×2 (18:37→19:02)
[2018-12-03] MEDS: DONEPEZIL 10 MG TABLET PO SCH ×2 (18:37→19:02)
[2018-12-03] MEDS: MONTELUKAST 10 MG TABLET PO SCH ×2 (18:37→19:02)
[2018-12-03] MEDS ORDERED: OLANZapine 10 MG VIAL IM PRN (21:52)
[2018-12-03] MEDS ORDERED: OLANZapine 10 MG VIAL IM ONE (21:55)
[2018-12-04] MEDS: 0.9 % SODIUM CHLORIDE 10 ML SYRINGE IV SCH ×4 (05:40→20:13)
[2018-12-04] MEDS: PIPERACILLIN SODIUM/TAZOBACTAM 2.25 GM in DEXTROSE 5% IN WATER 50 ML IV SCH ×5 (05:40→23:41)
[2018-12-04 06:58] LABS: Basophils # (Auto) 0 K/mcL (0.0-0.3); Basophils % (Auto) 0.3 % (0.0-2.0); Eosinophils # (Auto) 0.1 K/mcL (0.0-0.7); Eosinophils % (Auto) 0.5 % (0.0-7.0); Hematocrit 32.3 % (36.0-48.0); Hemoglobin 10.4 g/dL (12.0-15.0); Lymphocytes # (Auto) 1.5 K/mcL (1.5-4.8); Lymphocytes % (Auto) 11.9 % (15.5-49.0); Mean Corpuscular HGB Conc 32.3 g/dL (31.0-36.0); Mean Platelet Volume 8.2 fL (7.4-10.4); Monocytes # (Auto) 1.4 K/mcL (0.1-0.9); Monocytes % (Auto) 11.3 % (1.0-12.0); Platelet Count 232 K/mcL (140-440); RBC 3.63 M/mcL (4.00-5.20); Red Cell Distribution Width 16.2 % (11.5-14.5); WBC 12.3 K/mcL (4.5-11.0)
[2018-12-04 07:16] LABS: INR 1.7 (0.9-1.1); Prothrombin Time 19.8 sec (11.9-14.5)
--- NOTE | 2018-12-04 07:26 | Internal Med Progress Note ---
Medical - PN: Subj Patient information: Note initiated : 12/04/18 at 7:23 am Service Date, if different from initiated Date: [] Patient: Emely Chavez 83 y/o F admitted on 12/02/18 for cough. Chief Complaint: [] Interval history: Ms. Chavez is a 83 year old F who lives at home I believe with her daughter in the son-in-law, comes to the emergency room brought in by the family for evaluation of weakness and fever. Patient is pleasantly demented and notes that there is nothing wrong with her she was doing fine but her family did some tests and then brought her to the hospital. According to the ER note the patient family reported that the patient has a history of cough and fever that has been bothering her for the last 2 days. She was getting progressively worse and therefore she was brought to the emergency room for evaluation The family was not present by the bedside at the time of my evaluation The patient denied any acute complaints during my review of systems declined cough even though she was coughing. On presentation patient was febrile temperature 101.8 T-max of 102.5, heart rate 91 blood pressure 150 x 100 hypoxic with the oxygen saturation of 85 needing 3 L of oxygen to saturate more than 90%. Labs showed WBC count of 13.5 hemoglobin 12.3 platelets 214 INR is 1.5 lactic acid 1.0 chemistry shows sodium 139 potassium 4.5 creatinine 1.5 bicarbonate 25 glucose 126 procalcitonin is 0.44 troponin is negative. Chest x-ray was reported as negative possible pulmonary congestion by the radiologist however I felt that there is an infiltrate on the right side and therefore ordered a chest CT, also covered abdomen and pelvis to look for any other source of fever. CT chest showed patient does have infiltrate on the right side The patient does have history of dysphagia based on her previous records, she had a swallow eval done in 2018 which showed delayed swallow and early spillage. Patient possibly could also hav aspiration pneumonia. She is being admitted to the hospital for further management 12/03 Became agitated last night wandering home. On 2 L nasal cannula this morning. Awaiting speech therapy evaluation. N.p.o. until seen by speech. Has cough but denies shortness of breath 12/04 No overnight events. Patient with poor oral intake. Nursing encourage eating her to drink more. Agitated at night, . Review of Systems: denies headache/fever/chills/nausea/vomiting/chest or abdominal pain/dyspnea/diarrhea. Otherwise see above. - Constitutional Vitals: Vital Signs Temp Pulse Resp BP Pulse Ox 97.5 F 85 18 144/69 90 12/04/18 06:55 12/04/18 06:55 12/04/18 06:55 12/04/18 06:55 12/04/18 06:55 Period Temp Pulse Resp BP Sys/Treviño Pulse Ox Last 24 Hr 97.4 F-100.7 F 77-98 18-28 120-148/58-74 88-94 Intake and Output 12/03/18 12/04/18 12/04/18 21:59 05:59 13:59 Intake Total 160 340 Output Total 350 450 Balance -190 -110 Weight 68.039 kg Intake & Output: Intake & Output 12/03/18 12/04/18 12/04/18 21:59 05:59 13:59 Intake Total 160 340 Output Total 350 450 Balance -190 -110 Weight 68.039 kg Intake: IV 100 Zosyn 2.25 gm In Dextrose 5% in 100 Water 50 ml @ 100 mls/hr IV Q6H [facility] Rx#:[id number] Oral 160 240 Output: Urine Catheter Amount 350 450 Other: Meal Dinner Percent of Meal Consumed 75% Feeding Ability Needs Supervision Urine Appearance Clear Clear Temp Probe Gleason Cloudy Urine Color Dark Yellow Bright Yellow Temp Probe Gleason Dark Yellow Urine Odor Normal Exam: General: Alert, Awake, No acute Distress Eyes/N/T: EOMI, Head/Neck: neck supple, CV: RRR, No murmurs, Pulm: Occasional mild rhonchi bilaterally otherwise clear and no wheezing Abd: soft, nontender, +BS x4 Ext: no clubbing/cyanosis/edema Neuro: Alert, no focal deficits, moves all extremities, Skin: warm/dry Medical - PN: Obj Da - Labs CBC & Chem 7: 12/04/18 04:10 12/04/18 04:10 Labs: Abnormal Lab Results 12/04/18 12/04/18 12/03/18 04:10 04:10 04:46 WBC 12.3 H RBC 3.63 L Hgb 10.4 L Hct 32.3 L RDW 16.2 H Lymph % (Auto) 11.9 L Gran # 9.4 H [place] # (Auto) 1.4 H Seg Neutrophils % Lymphocytes % RBC Morphology Anisocytosis POC PT PT 19.8 H POC INR INR 1.7 H BUN 33 H Creatinine 1.4 H Glucose 109 H Total Bilirubin NT-Pro-B Natriuret Pep Albumin 3.0 L Globulin 3.8 H Albumin/Globulin Ratio 0.8 L Urine Occult Blood Ur Leukocyte Esterase Urine WBC Urine Bacteria 12/03/18 12/03/18 12/02/18 04:46 04:46 09:50 WBC 12.7 H RBC 3.77 L Hgb 11.0 L Hct 33.8 L RDW 16.2 H Lymph % (Auto) 12.7 L Gran # 9.6 H [place] # (Auto) 1.4 H Seg Neutrophils % Lymphocytes % RBC Morphology Anisocytosis POC PT PT 16.9 H POC INR INR 1.4 H BUN Creatinine Glucose Total Bilirubin NT-Pro-B Natriuret Pep Albumin Globulin Albumin/Globulin Ratio Urine Occult Blood 0.03 A Ur Leukocyte Esterase 25 A Urine WBC 5 H Urine Bacteria Few A 12/02/18 12/02/18 12/02/18 06:30 06:08 06:08 WBC 13.5 H RBC Hgb Hct RDW 16.5 H Lymph % (Auto) Gran # [place] # (Auto) Seg Neutrophils % 79 H Lymphocytes % 9 L RBC Morphology Abnorm A Anisocytosis 1+ A POC PT 17.2 H PT POC INR 1.5 H INR BUN 31 H Creatinine 1.5 H Glucose 126 H Total Bilirubin 1.1 H NT-Pro-B Natriuret Pep 3517.0 H Albumin Globulin 4.0 H Albumin/Globulin Ratio 0.9 L Urine Occult Blood Ur Leukocyte Esterase Urine WBC Urine Bacteria Meds: Medications Acetaminophen (Tylenol) 650 mg PO Q6HP PRN PRN Reason: PAIN/FEVER > 101 Last Admin: 12/03/18 18:58 Dose: 650 mg Documented by: Albuterol/Ipratropium (Duoneb) 3 ml NEB QID [facility] Last Admin: 12/03/18 21:05 Dose: 3 ml Documented by: Clonidine HCl (Catapres) 0.1 mg PO DAILY [facility] Last Admin: 12/03/18 07:25 Dose: 0.1 mg Documented by: Diltiazem HCl (Cardizem Cd) 360 mg PO DAILY [facility] Last Admin: 12/03/18 07:09 Dose: 360 mg Documented by: Donepezil HCl (Aricept) 5 mg PO HS [facility] Last Admin: 12/03/18 19:02 Dose: Not Given Documented by: Enoxaparin Sodium (Lovenox) 30 mg SQ DAILY [facility] Last Admin: 12/03/18 09:33 Dose: 30 mg Documented by: Fluticasone Propionate (Flonase) 1 spray NS DAILY [facility] Last Admin: 12/03/18 09:34 Dose: Not Given Documented by: Azithromycin 500 mg/ Dextrose 250 mls @ 250 mls/hr IV DAILY [facility]; Protocol Stop: 12/04/18 09:59 Last Admin: 12/03/18 10:03 Dose: 250 mls/hr Documented by: Piperacillin Sod/Tazobactam (Sod 2.25 gm/ Dextrose) 50 mls @ 100 mls/hr IV Q6H [facility]; Protocol Last Admin: 12/04/18 05:40 Dose: 100 mls/hr Documented by: Levothyroxine Sodium (Synthroid) 100 mcg PO ACB [facility] Last Admin: 12/03/18 07:09 Dose: 100 mcg Documented by: Magnesium Hydroxide (Milk Of Magnesia) 30 ml PO DAILYP PRN PRN Reason: Constipation Montelukast Sodium (Singular) 10 mg PO HS [facility] Last Admin: 12/03/18 19:02 Dose: Not Given Documented by: Naloxone HCl (Narcan) 0.1 mg IV Q2MIN PRN PRN Reason: Opiate Reversal Olanzapine (Zyprexa) 5 mg IM HSP PRN PRN Reason: Agitation Last Admin: 12/03/18 22:07 Dose: 5 mg Documented by: Ondansetron HCl (Zofran) 4 mg IV Q6HP PRN PRN Reason: Nausea And Vomiting Diclofenac Sodium [ Voltaren] 100 Gm Topical Gel 1 dose TOPICAL DAILYP PRN PRN Reason: Pain Senna (Senokot) 2 tab PO HS [facility] Last Admin: 12/03/18 19:02 Dose: Not Given Documented by: Sodium Chloride (Saline Flush) 10 ml IV Q8 [facility] Last Admin: 12/04/18 05:40 Dose: 10 ml Documented by: Trazodone HCl (Desyrel) 25 mg PO HSP PRN PRN Reason: Insomnia Last Admin: 12/03/18 18:37 Dose: 25 mg Documented by: Warfarin Sodium (Coumadin Per Pharmacy) 1 order PO UD [facility] Medical - PN: A/P - Time Spent With Patient Total time spent is greater than 50% in coordination of care (as documented) at patient's floor/unit and/or counseling patient: - Narrative A/P Narrative: A: *PNA, Aspiration: *Oropharyngeal Dysphagia, Moderate: *Acute hypoxic respiratory failure: -now on room air *Sepsis: improved *Atrial fibrillation: *MR, moderate to severe: *Hypothyroidism: on levothyroxine *Dysphagia:: *?BARTOLO on CKD III (base Cr~) *Dementia: *Unable to care of self at home: has had general decline P: -IVF today, poor oral intake -Zosyn (MRSA screen neg) -BC/SC pending -trend PCT -Wean O2 as able -IS/Acapella -ST following, dysphagia diet per ST -cont home cardizem and clonidine -pt/ot -CM for placement -ppx: Warfarin per pharmacy DNR Medical - PN: Qual - Stroke Symptom Onset Unknown: No - VTE Deep Vein Thrombosis/Pulmonary Embolism Present on Admission: No
[2018-12-04 07:37] LABS: ALT/SGPT 9 U/l (0-40); AST/SGOT 15 U/l (0-37); Albumin 2.9 gm/dL (3.2-5.2); Albumin/Globulin Ratio 0.8 (1.0-2.3); Alkaline Phosphatase 101 U/L (39-117); Bilirubin,Direct < 0.2 mg/dL (0.0-0.3); Bilirubin,Total 0.4 mg/dL (0.0-1.0); Blood Urea Nitrogen 42 mg/dl (8-23); Carbon Dioxide 23 mmol/L (22-30); Chloride 98 mmol/L (96-108); Globulin 3.7 gm/dL (2.2-3.7); Glomerular Filtration Rate 27; Glucose 150 mg/dL (70-105); Lactate Dehydrogenase 178 U/L (94-250); Phosphorous 3.6 mg/dL (2.7-4.5); Potassium 3.9 mmol/L (3.3-5.1); Sodium 138 mmol/L (133-145); Triglycerides 143 mg/dl (<150); Uric Acid 5.1 mg/dL (2.5-8.0)
[2018-12-04] MEDS: cloNIDine HCL 0.1 MG TABLET PO SCH (07:40)
[2018-12-04] MEDS: DILTIAZEM 120 MG CAP.XL.24H PO SCH (07:40)
[2018-12-04] MEDS: LEVOTHYROXINE 100 MCG TABLET PO SCH (07:40)
[2018-12-04] MEDS: IPRATROPIUM/ALBUTEROL 3 ML AMPUL.NEB NEB SCH ×3 (08:57→16:39)
[2018-12-04] MEDS ORDERED: 0.9 % SODIUM CHLORIDE 1,000 ML IV SCH (09:00)
[2018-12-04] MEDS: ENOXAPARIN 30 MG/0.3 ML SYRINGE SQ SCH (09:10)
[2018-12-04] MEDS: AZITHROMYCIN 500 MG in DEXTROSE 5% IN WATER 250 ML IV SCH (09:10)
[2018-12-04] MEDS: FLUTICASONE PROPIONATE SPRAY.NAS NS SCH (10:01)
--- NOTE | 2018-12-04 10:08 | XRay Report ---
CLINICAL INFORMATION: f/u aspiration COMPARISON: 12/02/2018 FINDINGS: Moderate cardiomegaly is unchanged. Mediastinum and pulmonary vessels are normal. Vague, mild patchy infiltrates in both mid and right lower lung field show slight improvement. No effusions IMPRESSION: Vague patchy bilateral infiltrates - slight improvement. No evidence of CHF Interpreted and Authenticated by: Kel Herrera 12/04/18
--- NOTE | 2018-12-04 10:58 | Discharge Summary ---
Medical - DS: Prov Patient information: Note initiated : 12/04/18 at 10:53 am Service Date, if different from initiated Date: [] Patient: Emely Chavez 83 y/o F admitted on 12/02/18 for cough. Chief Complaint: [] Date of admission: 12/02/18 11:35 Discharge date: 12/05/18 Primary care physician: Ame Mendoza Consults: 12/02/18 Consult to Physician [CONS] Stat Comment: Consulting Provider: Annelise Pimentel Reason For Exam: Physician to Consult Medical - DS: Meds - Discharge Medications Prescriptions: Amoxicillin/Potassium Clav [Augmentin] 500 mg PO BID #8 tab Lactobacillus [Culturelle] 1 cap PO BID #40 cap Active and Home Medications: Home Medications Diltiazem HCl [Diltiazem ER] 360 mg PO DAILY 08/05/18 [History Confirmed 12/02/18 Last Taken 12/01/18] Donepezil HCl [Donepezil HCl Odt] 5 mg PO HS 08/05/18 [History Confirmed 12/02/18 Last Taken Unknown] Fluticasone Propionate [Flonase] 1 spray NS DAILY 08/05/18 [History Confirmed 12/02/18 Last Taken 12/01/18] Ipratropium [place] 0.2 mg IH DAILY 08/05/18 [History Confirmed 12/02/18 Last Taken Unknown] Levothyroxine Sodium [Synthroid] 100 mcg PO DAILY 08/05/18 [History Confirmed 12/02/18 Last Taken 12/01/18] Montelukast [Singular] 10 mg PO HS 08/05/18 [History Confirmed 12/02/18 Last Taken 11/30/18] Warfarin [Coumadin] 3 mg PO DAILY 08/05/18 [History Confirmed 12/02/18 Last Taken 12/01/18] cloNIDine HCL [Catapres] 0.1 mg PO DAILY 08/05/18 [History Confirmed 12/02/18 Last Taken 12/01/18] Diclofenac Sodium [Voltaren] 100 gm TP DAILY PRN 12/02/18 [History Confirmed 12/02/18 Last Taken 12/02/18] Medical - DS: Hosp Hospital course: Mr. Chavez is a 83 year old F Ms. Chavez is a 83 year old F who lives at home I believe with her daughter in the son-in-law, comes to the emergency room brought in by the family for evaluation of weakness and fever. Patient is pleasantly demented and notes that there is nothing wrong with her she was doing fine but her family did some tests and then brought her to the hospital. According to the ER note the patient family reported that the patient has a history of cough and fever that has been bothering her for the last 2 days. She was getting progressively worse and therefore she was brought to the emergency room for evaluation The family was not present by the bedside at the time of my evaluation The patient denied any acute complaints during my review of systems declined cough even though she was coughing. On presentation patient was febrile temperature 101.8 T-max of 102.5, heart rate 91 blood pressure 150 x 100 hypoxic with the oxygen saturation of 85 needing 3 L of oxygen to saturate more than 90%. Labs showed WBC count of 13.5 hemoglobin 12.3 platelets 214 INR is 1.5 lactic acid 1.0 chemistry shows sodium 139 potassium 4.5 creatinine 1.5 bicarbonate 25 glucose 126 procalcitonin is 0.44 troponin is negative. Chest x-ray was reported as negative possible pulmonary congestion by the radiologist however I felt that there is an infiltrate on the right side and therefore ordered a chest CT, also covered abdomen and pelvis to look for any other source of fever. CT chest showed patient does have infiltrate on the right side The patient does have history of dysphagia based on her previous records, she had a swallow eval done in 2018 which showed delayed swallow and early spillage. Patient possibly could also hav aspiration pneumonia. She is being admitted to the hospital for further management 12/03 Became agitated last night wandering home. On 2 L nasal cannula this morning. Awaiting speech therapy evaluation. N.p.o. until seen by speech. Has cough but denies shortness of breath 12/04 No overnight events. Patient with poor oral intake. Nursing encourage eating her to drink more. Agitated at night, . 12/05 Had a good night. Calm and cooperative. No acute issues or new complaints. Breathing well on room air. Doing well. Stable for discharge Discharge diagnosis: Aspiration pneumonia sepsis oropharyngeal dysphasia moderate cute hypoxic r Secondary discharge diagnosis: Acute hypoxic respiratory failure A. fib MR hypothyroidism advanced dementia - Time Spent with Patient Total time spent providing and/or coordinating discharge services: Greater than 30 minutes Medical - DS: Exam - Constitutional Vitals: Vital Signs Temp Pulse Pulse Resp BP Pulse Ox 12/04/18 09:00 83 22 12/04/18 06:55 97.5 F 85 18 144/69 90 12/04/18 04:22 92 12/04/18 04:12 97.4 F 80 28 H 120/71 88 L 12/04/18 02:31 90 12/04/18 00:00 98.1 F 81 28 H 125/58 94 12/03/18 21:05 98 H 20 12/03/18 19:43 98.7 F 12/03/18 19:04 100.7 F H 86 28 H 148/60 90 12/03/18 18:58 100.7 F H 12/03/18 17:04 77 20 12/03/18 15:38 98.5 F 77 20 126/64 91 12/03/18 12:59 77 24 H 12/03/18 12:00 98.1 F 83 18 125/74 94 Intake and Output 12/03/18 12/04/18 12/04/18 21:59 05:59 13:59 Intake Total 160 340 50 Output Total 350 450 Balance -190 -110 50 Intake: IV 100 50 Zosyn 2.25 gm In Dextrose 5% in 100 50 Water 50 ml @ 100 mls/hr IV Q6H [facility] Rx#:[id number] Oral 160 240 Output: Urine Catheter Amount 350 450 Other: Meal Dinner Percent of Meal Consumed 75% Feeding Ability Needs Supervision Urine Appearance Clear Clear Temp Probe Gleason Cloudy Urine Color Dark Yellow Bright Yellow Temp Probe [place] Dark Yellow Urine Odor Normal Weight 68.039 kg Medical - DS: Data Labs on day of discharge: Labs from last 24 hours 12/04/18 12/04/18 12/04/18 04:10 04:10 04:10 WBC RBC Hgb Hct MCV MCH MCHC RDW Plt Count MPV Gran % Lymph % (Auto) [place] % (Auto) Eos % (Auto) Baso % (Auto) Gran # Lymph # (Auto) [place] # (Auto) Eos # (Auto) Baso # (Auto) PT 19.8 H INR 1.7 H Sodium 138 Potassium 3.9 Chloride 98 Carbon Dioxide 23 Anion Gap 17.0 H BUN 42 H Creatinine 1.7 H GFR Calculation 27 Glucose 150 H Uric Acid 5.1 Calcium 9.0 Phosphorus 3.6 Magnesium 2.0 Total Bilirubin 0.4 Direct Bilirubin < 0.2 GGT 36 AST 15 ALT 9 Alkaline Phosphatase 101 Lactate Dehydrogenase 178 Total Protein 6.6 Albumin 2.9 L Globulin 3.7 Albumin/Globulin Ratio 0.8 L Triglycerides 143 Procalcitonin 1.78 12/04/18 04:10 WBC 12.3 H RBC 3.63 L Hgb 10.4 L Hct 32.3 L MCV 89.0 MCH 28.8 MCHC 32.3 RDW 16.2 H Plt Count 232 MPV 8.2 Gran % 76.0 Lymph % (Auto) 11.9 L [place] % (Auto) 11.3 Eos % (Auto) 0.5 Baso % (Auto) 0.3 Gran # 9.4 H Lymph # (Auto) 1.5 [place] # (Auto) 1.4 H Eos # (Auto) 0.1 Baso # (Auto) 0 PT INR Sodium Potassium Chloride Carbon Dioxide Anion Gap BUN Creatinine GFR Calculation Glucose Uric Acid Calcium Phosphorus Magnesium Total Bilirubin Direct Bilirubin GGT AST ALT Alkaline Phosphatase Lactate Dehydrogenase Total Protein Albumin Globulin Albumin/Globulin Ratio Triglycerides Procalcitonin Preliminary micro results at discharge 12/02/18 06:18 Blood Culture - Preliminary Blood 12/02/18 06:10 Blood Culture - Preliminary Blood Medical - DS: A/P - Patient/Caregiver Discharge Instructions Activity: as per physical therapy Diet: Dysphagia Mech Alter Additional Instructions: f/u with speech therapy Prescriptions: Amoxicillin/Potassium Clav [Augmentin] 500 mg PO BID #8 tab Lactobacillus [Culturelle] 1 cap PO BID #40 cap - Follow up Plan Follow up with: Ame Mendoza ARNP [Primary Care Provider] - Disposition: Xfer SNF Prognosis: Undetermined Rehab Potential: Fair I certify that the patient requires SNF services: Yes Overall status at discharge: patient is progressing back to baseline Medical - DS: Qual - VTE Deep Vein Thrombosis/Pulmonary Embolism Present on Admission: No
[2018-12-04] MEDS ORDERED: WARFARIN 3 MG TABLET PO ONE (14:00)
[2018-12-04] MEDS ORDERED: IPRATROPIUM/ALBUTEROL 3 ML AMPUL.NEB NEB PRN (17:52)
[2018-12-04] MEDS: SENNOSIDES 1 TABLET PO SCH (20:12)
[2018-12-04] MEDS: LACTOBACILLUS 1 CAPSULE PO SCH (20:12)
[2018-12-04] MEDS: DONEPEZIL 10 MG TABLET PO SCH (20:12)
[2018-12-04] MEDS: MONTELUKAST 10 MG TABLET PO SCH (20:12)
[2018-12-05] MEDS: PIPERACILLIN SODIUM/TAZOBACTAM 2.25 GM in DEXTROSE 5% IN WATER 50 ML IV SCH (05:58)
[2018-12-05] MEDS: 0.9 % SODIUM CHLORIDE 10 ML SYRINGE IV SCH (05:59)
--- NOTE | 2018-12-05 06:47 | Internal Med Progress Note ---
Medical - PN: Subj Patient information: Note initiated : 12/05/18 at 6:45 am Service Date, if different from initiated Date: [] Patient: Emely Chavez 83 y/o F admitted on 12/02/18 for cough. Chief Complaint: [] Interval history: Ms. Chavez is a 83 year old F who lives at home I believe with her daughter in the son-in-law, comes to the emergency room brought in by the family for evaluation of weakness and fever. Patient is pleasantly demented and notes that there is nothing wrong with her she was doing fine but her family did some tests and then brought her to the hospital. According to the ER note the patient family reported that the patient has a history of cough and fever that has been bothering her for the last 2 days. She was getting progressively worse and therefore she was brought to the emergency room for evaluation The family was not present by the bedside at the time of my evaluation The patient denied any acute complaints during my review of systems declined cough even though she was coughing. On presentation patient was febrile temperature 101.8 T-max of 102.5, heart rate 91 blood pressure 150 x 100 hypoxic with the oxygen saturation of 85 needing 3 L of oxygen to saturate more than 90%. Labs showed WBC count of 13.5 hemoglobin 12.3 platelets 214 INR is 1.5 lactic acid 1.0 chemistry shows sodium 139 potassium 4.5 creatinine 1.5 bicarbonate 25 glucose 126 procalcitonin is 0.44 troponin is negative. Chest x-ray was reported as negative possible pulmonary congestion by the radiologist however I felt that there is an infiltrate on the right side and therefore ordered a chest CT, also covered abdomen and pelvis to look for any other source of fever. CT chest showed patient does have infiltrate on the right side The patient does have history of dysphagia based on her previous records, she had a swallow eval done in 2018 which showed delayed swallow and early spillage. Patient possibly could also hav aspiration pneumonia. She is being admitted to the hospital for further management 12/03 Became agitated last night wandering home. On 2 L nasal cannula this morning. Awaiting speech therapy evaluation. N.p.o. until seen by speech. Has cough but denies shortness of breath 12/04 No overnight events. Patient with poor oral intake. Nursing encourage eating her to drink more. Agitated at night, . 12/05 Had a good night. Calm and cooperative. No acute issues or new complaints. Breathing well on room air. Review of Systems: denies headache/fever/chills/nausea/vomiting/chest or abdominal pain/dyspnea/diarrhea. Otherwise see above. - Constitutional Vitals: Vital Signs Temp Pulse Resp BP Pulse Ox 99.2 F H 80 32 H 136/62 92 12/05/18 04:33 12/05/18 04:33 12/05/18 04:33 12/04/18 20:13 12/05/18 04:33 Period Temp Pulse Resp BP Sys/Treviño Pulse Ox Last 24 Hr 97.2 F-99.2 F 80-92 18-32 125-144/62-77 90-97 Intake and Output 12/04/18 12/05/18 12/05/18 21:59 05:59 13:59 Intake Total 370 1290 Output Total 2 Balance 370 1288 Weight 68.946 kg Intake & Output: Intake & Output 12/04/18 12/05/18 12/05/18 21:59 05:59 13:59 Intake Total 370 1290 Output Total 2 Balance 370 1288 Weight 68.946 kg Intake: IV 50 1050 Zosyn 2.25 gm In Dextrose 5% in 50 50 Water 50 ml @ 100 mls/hr IV Q6H [facility] Rx#:[id number] Oral 320 240 Output: Void Amount 0 # of times incontinent of urine 2 Other: Meal Lunch Percent of Meal Consumed 100% Feeding Ability Independent # Voids 1 1 Exam: General: Alert, Awake, No acute Distress Eyes/N/T: EOMI, Head/Neck: neck supple, CV: RRR, No murmurs, Pulm: no wheezing/rales Abd: soft, nontender, +BS x4 Ext: no clubbing/cyanosis/edema Neuro: Alert, no focal deficits, moves all extremities, Skin: warm/dry Medical - PN: Obj Da - Labs CBC & Chem 7: 12/04/18 04:10 12/04/18 04:10 Labs: Abnormal Lab Results 12/04/18 12/04/18 12/04/18 04:10 04:10 04:10 WBC 12.3 H RBC 3.63 L Hgb 10.4 L Hct 32.3 L RDW 16.2 H Lymph % (Auto) 11.9 L Gran # 9.4 H [place] # (Auto) 1.4 H Seg Neutrophils % Lymphocytes % RBC Morphology Anisocytosis PT 19.8 H INR 1.7 H Anion Gap 17.0 H BUN 42 H Creatinine 1.7 H Glucose 150 H Total Bilirubin NT-Pro-B Natriuret Pep Albumin 2.9 L Globulin Albumin/Globulin Ratio 0.8 L Urine Occult Blood Ur Leukocyte Esterase Urine WBC Urine Bacteria 12/03/18 12/03/18 12/03/18 04:46 04:46 04:46 WBC 12.7 H RBC 3.77 L Hgb 11.0 L Hct 33.8 L RDW 16.2 H Lymph % (Auto) 12.7 L Gran # 9.6 H [place] # (Auto) 1.4 H Seg Neutrophils % Lymphocytes % RBC Morphology Anisocytosis PT 16.9 H INR 1.4 H Anion Gap BUN 33 H Creatinine 1.4 H Glucose 109 H Total Bilirubin NT-Pro-B Natriuret Pep Albumin 3.0 L Globulin 3.8 H Albumin/Globulin Ratio 0.8 L Urine Occult Blood Ur Leukocyte Esterase Urine WBC Urine Bacteria 12/02/18 12/02/18 12/02/18 09:50 06:08 06:08 WBC 13.5 H RBC Hgb Hct RDW 16.5 H Lymph % (Auto) Gran # [place] # (Auto) Seg Neutrophils % 79 H Lymphocytes % 9 L RBC Morphology Abnorm A Anisocytosis 1+ A PT INR Anion Gap BUN 31 H Creatinine 1.5 H Glucose 126 H Total Bilirubin 1.1 H NT-Pro-B Natriuret Pep 3517.0 H Albumin Globulin 4.0 H Albumin/Globulin Ratio 0.9 L Urine Occult Blood 0.03 A Ur Leukocyte Esterase 25 A Urine WBC 5 H Urine Bacteria Few A Meds: Medications Acetaminophen (Tylenol) 650 mg PO Q6HP PRN PRN Reason: PAIN/FEVER > 101 Last Admin: 12/03/18 18:58 Dose: 650 mg Documented by: Albuterol/Ipratropium (Duoneb) 3 ml NEB Q4HP PRN PRN Reason: Shortness Of Breath Last Admin: 12/04/18 22:55 Dose: 3 ml Documented by: Clonidine HCl (Catapres) 0.1 mg PO DAILY [facility] Last Admin: 12/04/18 07:40 Dose: 0.1 mg Documented by: Diltiazem HCl (Cardizem Cd) 360 mg PO DAILY [facility] Last Admin: 12/04/18 07:40 Dose: 360 mg Documented by: Donepezil HCl (Aricept) 5 mg PO [facility] Last Admin: 12/04/18 20:12 Dose: 5 mg Documented by: Enoxaparin Sodium (Lovenox) 30 mg SQ DAILY [facility] Last Admin: 12/04/18 09:10 Dose: 30 mg Documented by: Fluticasone Propionate (Flonase) 1 spray NS DAILY [facility] Last Admin: 12/04/18 10:01 Dose: Not Given Documented by: Piperacillin Sod/Tazobactam (Sod 2.25 gm/ Dextrose) 50 mls @ 100 mls/hr IV Q6H [facility]; Protocol Last Admin: 12/05/18 05:58 Dose: 100 mls/hr Documented by: Lactobacillus Rhamnosus (Culturelle) 1 cap PO BID [facility] Last Admin: 12/04/18 20:12 Dose: 1 cap Documented by: Levothyroxine Sodium (Synthroid) 100 mcg PO ACB [facility] Last Admin: 12/04/18 07:40 Dose: 100 mcg Documented by: Magnesium Hydroxide (Milk Of Magnesia) 30 ml PO DAILYP PRN PRN Reason: Constipation Montelukast Sodium (Singular) 10 mg PO [facility] Last Admin: 12/04/18 20:12 Dose: 10 mg Documented by: Naloxone HCl (Narcan) 0.1 mg IV Q2MIN PRN PRN Reason: Opiate Reversal Olanzapine (Zyprexa) 5 mg IM [facility] PRN PRN Reason: Agitation Last Admin: 12/03/18 22:07 Dose: 5 mg Documented by: Ondansetron HCl (Zofran) 4 mg IV Q6HP PRN PRN Reason: Nausea And Vomiting Diclofenac Sodium [ Voltaren] 100 Gm Topical Gel 1 dose TOPICAL DAILYP PRN PRN Reason: Pain Senna (Senokot) 2 tab PO [facility] Last Admin: 12/04/18 20:12 Dose: 2 tab Documented by: Sodium Chloride (Saline Flush) 10 ml IV Q8 [facility] Last Admin: 12/05/18 05:59 Dose: 10 ml Documented by: Trazodone HCl (Desyrel) 25 mg PO [facility] PRN PRN Reason: Insomnia Last Admin: 12/03/18 18:37 Dose: 25 mg Documented by: Warfarin Sodium (Coumadin Per Pharmacy) 1 order PO UD [facility] Medical - PN: A/P - Time Spent With Patient Total time spent is greater than 50% in coordination of care (as documented) at patient's floor/unit and/or counseling patient: - Narrative A/P Narrative: A: *PNA, Aspiration: *Oropharyngeal Dysphagia, Moderate: *Acute hypoxic respiratory failure: -now on room air *Sepsis: improved *Atrial fibrillation: *MR, moderate to severe: *Hypothyroidism: on levothyroxine *?BARTOLO on CKD III (base Cr~) *Advanced Dementia: *Unable to care of self at home: has had general decline P: -Zosyn (MRSA screen neg) to augmentin -IS/Acapella -ST following, dysphagia diet per ST -cont home cardizem and clonidine -pt/ot -CM for placement -ppx: Warfarin per pharmacy DNR Medical - PN: Qual - Stroke Symptom Onset Unknown: No - VTE Deep Vein Thrombosis/Pulmonary Embolism Present on Admission: No
[2018-12-05] MEDS: LEVOTHYROXINE 100 MCG TABLET PO SCH (07:40)
[2018-12-05] MEDS: ENOXAPARIN 30 MG/0.3 ML SYRINGE SQ SCH (08:36)
[2018-12-05] MEDS: DILTIAZEM 120 MG CAP.XL.24H PO SCH (08:36)
[2018-12-05] MEDS: LACTOBACILLUS 1 CAPSULE PO SCH (08:36)
[2018-12-05] MEDS: cloNIDine HCL 0.1 MG TABLET PO SCH (08:36)
[2018-12-05] MEDS: FLUTICASONE PROPIONATE SPRAY.NAS NS SCH (08:37)
[2018-12-05 09:15] LABS: Basophils # (Auto) 0 K/mcL (0.0-0.3); Basophils % (Auto) 0.2 % (0.0-2.0); Eosinophils # (Auto) 0.2 K/mcL (0.0-0.7); Eosinophils % (Auto) 1.8 % (0.0-7.0); Granulocytes % (Auto) 73.1 % (38.0-78.0); Hematocrit 32.8 % (36.0-48.0); Hemoglobin 10.5 g/dL (12.0-15.0); Lymphocytes # (Auto) 1.5 K/mcL (1.5-4.8); Lymphocytes % (Auto) 12.9 % (15.5-49.0); Mean Cell Volume 89.7 fL (80.0-100.0); Mean Corpuscular HGB Conc 32.2 g/dL (31.0-36.0); Mean Platelet Volume 8.3 fL (7.4-10.4); Monocytes # (Auto) 1.4 K/mcL (0.1-0.9); Platelet Count 293 K/mcL (140-440); RBC 3.65 M/mcL (4.00-5.20); Red Cell Distribution Width 16.4 % (11.5-14.5); WBC 11.3 K/mcL (4.5-11.0)
[2018-12-05 09:20] LABS: INR 1.9 (0.9-1.1); Prothrombin Time 21.8 sec (11.9-14.5)
[2018-12-05 09:25] LABS: ALT/SGPT 11 U/l (0-40); AST/SGOT 19 U/l (0-37); Albumin 2.8 gm/dL (3.2-5.2); Albumin/Globulin Ratio 0.7 (1.0-2.3); Alkaline Phosphatase 113 U/L (39-117); Bilirubin,Direct < 0.2 mg/dL (0.0-0.3); Bilirubin,Total 0.6 mg/dL (0.0-1.0); Blood Urea Nitrogen 36 mg/dl (8-23); Calcium 9.1 mg/dl (8.6-10.4); Carbon Dioxide 23 mmol/L (22-30); Chloride 98 mmol/L (96-108); Glomerular Filtration Rate 29; Glucose 110 mg/dL (70-105); Lactate Dehydrogenase 214 U/L (94-250); Magnesium 1.9 mg/dL (1.6-2.5); Phosphorous 2.4 mg/dL (2.7-4.5); Sodium 137 mmol/L (133-145); Triglycerides 155 mg/dl (<150)
== END 2018-12-05 11:20 | DRG 871 ==
LOC: ED 05:46 → MEDSUR 11:35
PROVIDERS: ADMIT Internal Medicine; ATTEND Internal Medicine